=== PATIENT | male | born 2000 | race Hispanic/Latino ===

== ENCOUNTER 2021-03-21 19:17 | Emergency (ER) | payer SELFPAY ==
[~2021-03-21] VITALS: Ht 165.1 cm; Wt 81.6 kg
[2021-03-21] MEDS ORDERED: FAMOTIDINE 20 MG TAB PO ONE (22:00)
[2021-03-21] MEDS ORDERED: ACETAMINOPHEN 325 MG TAB PO ONE (22:00)
[2021-03-21] MEDS ORDERED: FAMOTIDINE 20 MG TAB ONE (22:09)
[2021-03-21] MEDS ORDERED: ACETAMINOPHEN 325 MG TAB ONE (22:09)
== END 2021-03-21 22:42 | disposition home or self-care (01) ==
LOC: FSED 20:13
DX: K92.0 Hematemesis (principal)
CPT/HCPCS: 99282